=== PATIENT | male | born 1950 | race Caucasian/White ===

== ENCOUNTER 2022-08-16 10:09 | Outpatient (CLI) | payer MEDICARE, SELFPAY ==
[2022-08-16 19:15] LABS: Albumin* 4.4 g/dL (3.3-5.0)
[2022-08-16 19:16] LABS: Chloride* 110 mmol/L (96-114); Potassium* 4.2 mmol/L (3.6-5.1); Sodium* 142 mmol/L (135-149)
[2022-08-16 19:18] LABS: Carbon Dioxide* 22 mmol/L (20-32); Cholesterol* 191 mg/dL (90-199); Creatinine* 1.1 mg/dL (0.5-1.5); Estimated Glomerular Filt Rate 71 ml/min
[2022-08-16 19:19] LABS: Alanine Aminotransferase* 49 U/L (4-50); Alkaline Phosphatase* 97 U/L (40-150); Aspartate Amino Transferase* 44 U/L (12-35); Bilirubin Total* 0.9 mg/dL (0.1-1.5); Blood Urea Nitrogen* 24 mg/dL (7-30); Calcium* 9.7 mg/dL (8.4-10.6); Glucose* 102 mg/dL (60-115); HDL Cholesterol* 61 mg/dL (>=40); LDL Cholesterol Calculated 107 mg/dL (<100); Total Protein* 7.3 g/dL (6.0-8.3); Triglycerides* 117 mg/dL (40-149)
[2022-08-16 21:13] LABS: PSA Screen* 1.61 ng/mL (0.10-4.00)
== END 2022-08-16 10:10 | disposition home or self-care (01) ==
PROVIDERS: PCP Family Medicine; Visit Provider Family Medicine
DX: Z00.00 Encounter for general adult medical examination without abnormal findings (principal); F41.9 Anxiety disorder, unspecified; E78.5 Hyperlipidemia, unspecified; Z12.5 Encounter for screening for malignant neoplasm of prostate; Z13.1 Encounter for screening for diabetes mellitus; Z13.21 Encounter for screening for nutritional disorder
CPT/HCPCS: 80053; 80061; 84153; 84439; 84443

== ENCOUNTER 2023-04-18 14:55 | Outpatient (CLI) | payer MEDICARE, SELFPAY | END 2023-04-18 14:56 | disposition home or self-care (01) | LOC: LONREF 14:58 | PROVIDERS: PCP Family Medicine; Visit Provider Family Medicine | DX: Z01.818 Encounter for other preprocedural examination (principal) | CPT/HCPCS: 80048 ==

== ENCOUNTER 2023-05-09 06:14 | Day surgery (SDC) | payer MEDICARE, OTHER, SELFPAY ==
[2023-05-09] VITALS (13 sets, daily range): BP systolic 116–181; BP diastolic 63–93; PULSE 65–92; RESP 14–18; TEMP 36.1–36.7; O2SAT 97–100; BMI 24.6
[2023-05-09] MEDS: LACTATED RINGERS 1000 ML 1,000 ML 100 ML IV (06:45)
[2023-05-09] MEDS: SODIUM CHLORIDE 0.9 % (FLUSH) 10 ML SYRINGE IVF (06:45)
--- NOTE | 2023-05-09 07:28 | P.GSOP_ITS ---
Operative Note Pre-op diagnosis: 1. Symptomatic enlarged external and internal hemorrhoids. Post-op diagnosis: 1. Severely enlarged internal and external hemorrhoidal tissue circumferentially. Type of Procedure: 1. Two quadrant internal and external hemorrhoidectomy. Indications: 73-year-old male with MS was seen in clinic for evaluation of hemorrhoids that he had for several years. In the last year he noticed increased tissue protruding through his anus and staying outside of his anus. He also noticed leakage of mucus from his anus. The leakage of mucus happened almost every 2 hours. He denied incontinence or pain. His bowel movements were daily and he denied straining. On clinical exam patient was noted to have severely enlarged external and internal hemorrhoidal tissue left posterior laterally and right anterior laterally. There was a mildly enlarged external hemorrhoid right posterior laterally. Patient was not able to hold gas during anoscopy. Given patient's clinical history in his physical exam, a 2 quadrant hemorrhoidectomy was recommended. The procedure was discussed in detail. The risks associated procedure including infection, bleeding, urinary retention, and incontinence were all discussed with the patient, and he agreed to proceed. Procedure Description: After discussing the risks and benefits of the procedure, the patient signed informed consent.? The operative site was marked and the patient was brought to the operating room. The patient was intubated by anesthesia and then placed prone on operating table with all pressure points padded. ?? The operative site was then prepped and draped in the usual sterile fashion.? A time-out was then performed. External examination, digital rectal examination, and anoscopic examination were all done and revealed severely redundant internal hemorrhoidal tissue circumferentially in the anal canal with enlarged external hemorrhoidal tissue left posterior laterally and right anterior laterally. Based on this assessment, plans were made for a 2-quadrant closed hemorrhoidectomy to encompass the largest redundant tissue. Attention was initially directed to the largest area of involvement and then went to the progressively smaller areas and all were handled in the same fashion. I first started left posterior laterally. An elliptical incision was made with a needle tip electrocautery from the anoderm up into the anal canal just above the dentate line. The enlarged internal hemorrhoidal tissue extended just below the dentate line. Careful dissection of the hemorrhoid complex was done in the plane between the internal anal sphincter and the submucosal vascular plexus. Having established the proper plane, the hemorrhoidal tissue was then excised with the Ligasure device and sent to Pathology for analysis. Care was taken to preserve mucosa for a tension-free closure. Some residual enlarged adjacent internal hemorrhoidal tissue was visualized but not excised to achieve mucosal closure. The internal sphincter fibers were visualized at the base of the wound and were intact. The anal canal mucosa was then closed with a running locking 3- 0 Vicryl suture up to the anal verge. The rest of the incision was closed with a running 3-0 chromic suture starting at the apex (proximal aspect of elliptical excision)and then running back up in a simple fashion and tying down at the apex. Bleeding was seen in the anal canal and that was oversewn with an additional 3-0 Vicryl suture. I have and similarly excised external and internal hemorrhoidal tissue right anterior laterally. The anal canal portion of the incision was closed with a running 3-0 Vicryl suture until the anal verge. At the anal verge the rest of the skin was closed with 3-0 chromic suture. Direct pressure was held for hemostasis. A pressure dressing was then placed into the anal canal to be removed in the PACU. Sterile dressings were then applied. ? The patient was then woken and transported to the recovery area in stable condition. ? The patient tolerated the procedure well. Findings: Severely redundant internal hemorrhoidal tissue. Anesthesia: GETA Surgeon: Henny Dailey MD Estimated blood loss (mL): 5 Additional Specimen Information: 1. Hemorrhoids. Condition: stable Disposition: PACU Date of procedure: 05/09/23
[2023-05-09] MEDS: BUPIVACAINE 0.5 %/EPI 1:200K 30 ML INJECTION (08:30)
[2023-05-09] MEDS: BUPIVACAINE LIPOSOME 133 MG/10 ML INJ INFILTRATI (08:30)
--- NOTE | 2023-05-09 08:52 | W.ANESCHARGE ---
Anesthesia Charges Start Date/Time Anesthesia Start Date: 05/09/23 Anesthesia Start Time: 07:26 Stop Date/Time Anesthesia Stop Date: 05/09/23 Anesthesia Stop Time: 08:50 Summary Extremes of Age - Over 70 or under 1: MDA
--- NOTE | 2023-05-09 08:54 | W.ANESCHARGE ---
Anesthesia Charges Start Date/Time Anesthesia Start Date: 05/09/23 Anesthesia Start Time: 07:26 Stop Date/Time Anesthesia Stop Date: 05/09/23 Anesthesia Stop Time: 08:50
--- NOTE | 2023-05-09 09:00 | SUR.PHASEI ---
anal packing removed at 0900 per [place]; minimal sanguinous discharge
--- NOTE | 2023-05-09 09:23 | SUR.PHASEI ---
patient meets pacu d/c criteria
[2023-05-09] MEDS: HYDROCODONE-ACETAMIN 5-325 MG 1 TAB PO (09:45)
== END 2023-05-09 10:25 | disposition home or self-care (01) ==
PROVIDERS: PCP Family Medicine; Visit Provider Surgery
PROC: (CPT 46260; principal; 2023-05-09 07:30)
DX: K64.8 Other hemorrhoids (principal); K64.4 Residual hemorrhoidal skin tags
CPT/HCPCS: 46260; 00902; 88304; 99100; A9270; C9290; J0330; J1100; J2371; J2405; J2704; J3010; J3490; J7120

== ENCOUNTER 2025-01-22 10:01 | Outpatient (CLI) | payer MEDICARE, OTHER, SELFPAY | END 2025-01-22 10:02 | disposition home or self-care (01) | PROVIDERS: PCP Family Medicine; Visit Provider Family Medicine | DX: E78.2 Mixed hyperlipidemia (principal); I10 Essential (primary) hypertension; R63.4 Abnormal weight loss; R33.9 Retention of urine, unspecified; Z12.5 Encounter for screening for malignant neoplasm of prostate; Z13.21 Encounter for screening for nutritional disorder | CPT/HCPCS: 80048; 80061; 82607; 84443; G0103 ==